=== PATIENT | male | born 1945 | race African-American/Black ===

== ENCOUNTER 2022-10-19 07:50 | Day surgery (SDC) | payer OTHER, BC ==
[2022-10-19] MEDS ORDERED: PROPOFOL 80 ML ONE (08:11)
[2022-10-19 08:12] VITALS: BMI 29.2
[2022-10-19 09:16] VITALS: TEMP 98
[2022-10-19 09:37] VITALS: RESP 18
[2022-10-19 09:41] VITALS: BP 128/72; PULSE 62
== END 2022-10-19 10:09 | disposition home or self-care (01) ==
LOC: FASU-ENDO 07:50
PROVIDERS: ATTEND Internal Medicine Gastroenterology
PROC: 0DBM8ZX Excision of Descending Colon, Via Natural or Artificial Opening Endoscopic, Diagnostic (ICD-10-PCS; principal; 2022-10-19 08:53)
DX: Z12.11 Encounter for screening for malignant neoplasm of colon (principal); K63.5 Polyp of colon; K57.30 Diverticulosis of large intestine without perforation or abscess without bleeding
CPT/HCPCS: 82962; 88305-TC